=== PATIENT | female | born 1965 | race Caucasian/White ===

== ENCOUNTER 2019-03-19 06:14 | Day surgery (SDC) | payer OTHER ==
[2019-03-19] MEDS ORDERED: FENTAnyl 50 MCG/ML VIAL (08:46)
[2019-03-19] MEDS ORDERED: MIDAZOLAM 1 MG/ML 2 ML INJ (08:46)
== END 2019-03-19 10:51 | disposition home or self-care (01) ==
LOC: GIL 06:14
DX: Z12.11 Encounter for screening for malignant neoplasm of colon (principal); K64.8 Other hemorrhoids; I10 Essential (primary) hypertension; E11.9 Type 2 diabetes mellitus without complications
CPT/HCPCS: 45378; 82962